=== PATIENT | female | born 1945 ===

== ENCOUNTER 2020-03-14 12:49 | Outpatient (CLI) | payer OTHER | END 2020-03-14 13:01 | disposition HB | LOC: MAMO-SONO 12:49 → SONOGRAMA 12:49 → MAMO-SONO 13:01 → SONOGRAMA 14:45 | PROVIDERS: ATTEND Surgery | DX: N60.01 Solitary cyst of right breast (principal); N64.59 Other signs and symptoms in breast; N60.11 Diffuse cystic mastopathy of right breast; R92.0 Mammographic microcalcification found on diagnostic imaging of breast; N60.12 Diffuse cystic mastopathy of left breast ==